=== PATIENT | male | born 1980 | race Caucasian/White ===

== ENCOUNTER 2017-05-05 16:52 | Emergency (ER) | payer BC ==
[2017-05-05 17:48] VITALS: BP 137/73
--- NOTE | 2017-05-05 17:58 | UC ---
Skin Complaint HPI - HPI Summary HPI Summary: Bilateral itching red rash both axilla for 3 days "gets rashes all the time" - History of Current Complaint Chief Complaint: UCRash Time Seen by Provider: 05/05/17 17:43 Stated Complaint: SKIN COMPLAINT Hx Obtained From: Patient Onset/Duration: Gradual Onset, Lasting Days - 3, Still Present Timing: Constant Onset Severity: Moderate Current Severity: Moderate Location: Other - both axilla Character: Pruritus, Redness Aggravating: Nothing Alleviating: Nothing Associated Signs & Symptoms: Positive: Rash - Allergy/Home Medications Allergies/Adverse Reactions: Allergies Allergy/AdvReac Type Severity Reaction Status Date / Time weeds Allergy Sneezing Uncoded 05/05/17 17:42 Review of Systems Constitutional: Negative Skin: Rash Eyes: Negative ENT: Negative Respiratory: Negative Cardiovascular: Negative Gastrointestinal: Negative Genitourinary: Negative Motor: Negative Neurovascular: Negative Musculoskeletal: Negative Neurological: Negative Psychological: Negative All Other Systems Reviewed And Are Negative: Yes PMH/Surg Hx/FS Hx/Imm Hx Previously Healthy: Yes - Surgical History Surgical History: None - Family History Known Family History: Positive: None Family History: no reported cardio vascular issues in family lineage - Social History Occupation: Employed Full-time Lives: With Family Alcohol Use: Rare Substance Use Type: None Smoking Status (MU): Never Smoked Tobacco Physical Exam Triage Information Reviewed: Yes Appearance: Well-Appearing, No Pain Distress, Well-Nourished Vital Signs: Initial Vital Signs Temp 99 F 05/05/17 17:43 Pulse 52 05/05/17 17:43 Resp 16 05/05/17 17:43 BP 137/73 05/05/17 17:43 Pulse Ox 98 05/05/17 17:43 Vital Signs Reviewed: Yes Eye Exam: Normal Eyes: Positive: Conjunctiva Clear ENT Exam: Normal ENT: Positive: Normal ENT inspection, Hearing grossly normal, Pharynx normal. Negative: Nasal congestion, Nasal drainage, Trismus, Muffled/hoarse voice Dental Exam: Normal Neck exam: Normal Neck: Positive: Supple, Nontender Respiratory Exam: Normal Respiratory: Positive: Chest non-tender, Normal breath sounds, No respiratory distress, No accessory muscle use Cardiovascular Exam: Normal Cardiovascular: Positive: RRR, No Murmur, Pulses Normal, Brisk Capillary Refill Musculoskeletal Exam: Normal Musculoskeletal: Positive: Strength Intact, ROM Intact, No Edema Neurological Exam: Normal Neurological: Positive: Alert, Muscle Tone Normal Psychological Exam: Normal Skin: Positive: rashes - raised red itchy Course/Dx - Course Course Of Treatment: triamcilon. Cream prednisone to soap and water wash, benadryl - Differential Diagnoses - Skin Complaint Differential Diagnoses: Cellulitis, Contact Dermatitis, Local Allergic Reaction , Poison Yoly - Diagnoses Provider Diagnoses: contact dermititis Discharge - Discharge Plan Condition: Stable Disposition: HOME Prescriptions: Triamcinolone 0.1% CREAM(NF) [Kenalog Cream 0.1%(NF)] 1 applic TOPICAL BID #60 gm predniSONE TAB* [Deltasone TAB*] 50 mg PO DAILY #5 tab Patient Education Materials: Diphenhydramine (By mouth), Contact Dermatitis (ED ) Referrals: No Primary Care Phys,NOPCP [Primary Care Provider] - If Needed
== END 2017-05-05 18:12 | disposition home or self-care (01) ==
LOC: UCCORT 16:52
DX: L25.9 Unspecified contact dermatitis, unspecified cause (principal)
CPT/HCPCS: 99212; G0463

== ENCOUNTER 2019-11-26 13:28 | Emergency (ER) | payer OTHER ==
--- OUTSIDE RECORDS SUMMARY | 2019-11-26 14:14 | XMS REPORT | Continuity of Care Document ---
:1980 External Reference #:[id number] Author Name Tati Armenta (transmitted by agent of provider Luca Urbina) Address [address] [place] [id number] Problems Active Problems Provider Date Disorder of lipid metabolism Luca Urbina M.D. Onset: 06/06/2006 Intrinsic asthma without status asthmaticus Luca Urbina M.D. Onset: Social History Type Date Description Comments Sex Unknown Tobacco Use Start: Unknown End: Does Not Smoke Unknown Cigarettes ETOH Use Rare Alcohol Use Maybe one a year Recreational Drug Use Denies Drug Use Tobacco Use Start: Unknown Patient has never smoked Smoking Status Reviewed: 10/21/19 Patient has never smoked Allergies, Adverse Reactions, Alerts Description No Known Drug Allergies Medications Active Medications SIG Qnty Indications Ordering Date Provider Triamcinolone apply thin layer 15gm Luca Urbina, 10/23/2019 Acetonide to affected areas M.D. 0.1% Cream on abdomen 2-3 times a day until rash clears, for up to 2 weeks Benadryl Allergy 2 tab QHS for Unknown 10/20/2019 25mg allergies Tablets Fluticasone two sprays (50 16units J30.9 Luca Urbina, 12/24/2017 Propionate mcg/spray) per M.D. 50mcg/Act nostril once Suspension daily (can also try one spray per nostril bid) for allergies Melonie Allergy 1 tab by mouth Unknown 12/23/2017 180mg every day as Tablets needed for allergy Ventolin HFA 2 puffs every 4 18gm J45.20 Luca Urbina, 12/07/2015 hours prn; use M.D. 108(90Base) mcg/Act 15-30min before Aerosol exercise in cold weather Immunizations CPT Code Status Date Vaccine Lot # [id number] Given 10/18/2012 Flu, Split Virus 3Yrs 94924 Given 10/17/2011 Flu, Split Virus 3Yrs [id number] Given 09/23/2010 Flu, Split Virus 3Yrs 18042 Given 09/05/2010 Pneumococcal Immunization [id number] [id number] Given 09/10/2006 Flu, Split Virus 3Yrs [id number] Given 06/06/2006 Adacel or Boostrix, TDaP [id number] U-Flu Refused 10/23/2019 Influenza,Unspecified Vital Signs Date Vital Result Comment 10/21/2019 2:53pm BP Systolic 128 mmHg BP Diastolic 70 mmHg Height 70.5 inches 5'10.50" Weight 188.00 lb BMI (Body Mass Index) 26.6 kg/m2 03/05/2018 8:42am BP Systolic 126 mmHg BP Diastolic 72 mmHg Height 70.5 inches 5'10.50" Weight 188.00 lb BMI (Body Mass Index) 26.6 kg/m2 Results Description No Information Available Procedures Date Code Description Status 10/21/2019 49248 Spirometry Completed Medical Devices Description No Information Available Encounters Type Date Location Provider Dx Diagnosis Office Visit 10/21/2019 Main Office Prachi Armenta.5 Hyperlipidemia, 3:00p P.A. unspecified J30.9 Allergic rhinitis, unspecified J45.20 Mild intermittent asthma, uncomplicated Z68.26 Body mass index (BMI) 26.0-26.9, adult Assessments Date Code Description Provider 10/21/2019 E78.5 Hyperlipidemia, unspecified Giselle Becerra, P.A. 10/21/2019 J30.9 Allergic rhinitis, unspecified Giselle Richardle, P.A. 10/21/2019 J45.20 Mild intermittent asthma, uncomplicated Giselle Becerra, P.A. 10/21/2019 Z68.26 Body mass index (BMI) 26.0-26.9, adult Giselle Becerra P.A. Plan of Treatment Future Appointment(s):11/09/2020 3:30 pm - Luca Urbina M.D. at [facility]/21/2019 - Tati ArmentaE78.5 Hyperlipidemia, unspecifiedNew Labs: Lipid Profile (Trig/Chol/HDL), Ordered: 10/21/19J30.9 Allergic rhinitis, flhyeuqbaerR55.20 Mild intermittent asthma, uncomplicatedComments:excellent results w spirometry, reviewed w ptZ68.26 Body mass index (BMI) 26.0-26.9, adult Functional Status Description No Information Available Mental Status Description No Information Available Referrals Description No Information Available
== END 2019-11-26 14:00 | disposition left against medical advice (07) ==
LOC: UCCORT 13:28
DX: Z53.21 Procedure and treatment not carried out due to patient leaving prior to being seen by health care provider (principal)